=== PATIENT | male | born 2000 | race Two or more races ===

== ENCOUNTER → 2025-04-07 | Outpatient (CLI) | payer BC ==
--- NOTE | 2025-04-07 16:21 | HMCIMG ---
EXAM: CR right ankle, 2 View. CLINICAL HISTORY: RIGHT ANKLE PAIN COMPARISON: None provided. FINDINGS: BONES: No acute fracture or aggressive appearing osseous lesion. JOINTS: The joint spaces appear within normal limits. No dislocation. No radiographic evidence of a joint effusion. SOFT TISSUES: The soft tissues are unremarkable. IMPRESSION: No acute osseous abnormality. /Sebree
== END | disposition home or self-care (01) ==
LOC: RAH 15:25
PROVIDERS: ATTEND Internal Medicine
DX: M25.571 Pain in right ankle and joints of right foot (principal)
CPT/HCPCS: 73600